=== PATIENT | male | born 1980 ===

== ENCOUNTER 2020-09-08 05:15 | Day surgery (SDC) | payer OTHER ==
[~2020-09-08 05:15] MED LIST: CLONAZEPAM0.5 MG PO
[2020-09-08] MEDS ORDERED: PERCOCET 5-3251 EACH PO (10:48)
== END 2020-09-08 12:50 | disposition home or self-care (01) ==
LOC: CIR.AMB 05:15
PROVIDERS: ATTEND Surgery
DX: K64.4 Residual hemorrhoidal skin tags (principal); K64.8 Other hemorrhoids; Z20.822 Contact with and (suspected) exposure to COVID-19